=== PATIENT | male | born 1975 | race Hispanic/Latino ===

== ENCOUNTER 2023-12-01 08:48 | Emergency (ER) | payer OTHER, SELFPAY ==
[2023-12-01] MEDS ORDERED: Ibuprofen 800 MG TAB ONE (09:45)
== END 2023-12-01 11:15 | disposition home or self-care (01) ==
LOC: MADERS 08:48
DX: S82.51XA Displaced fracture of medial malleolus of right tibia, initial encounter for closed fracture (principal); I10 Essential (primary) hypertension; W01.0XXA Fall on same level from slipping, tripping and stumbling without subsequent striking against object, initial encounter
CPT/HCPCS: 29515